=== PATIENT | male | born 1975 | race Caucasian/White ===

== ENCOUNTER 2017-02-14 18:59 | Emergency (ER) | payer OTHER ==
[2017-02-14 19:16] VITALS: TEMP 98; O2SAT 98
[2017-02-14] MEDS ORDERED: Naproxen 550 mg Tab PO STA (19:27)
[2017-02-14] MEDS ORDERED: Naproxen 550 mg Tab PO ONE (19:31)
--- NOTE | 2017-02-14 20:13 | C.PDOC ---
History Of Present Illness The patient, a 41 y/o male, presents to the ED for evaluation of back pain which began while he was at work earlier today. Patient states he reached up to pull something down and five minutes later, patient began experiencing a sharp pain to his right upper back. Patient states his pain is worse with movement and deep inspiration. Otherwise, patient denies direct trauma, chest pain, shortness of breath. Time Seen by Provider: 02/14/17 19:22 Chief Complaint (Nursing): Back Pain History Per: Patient History/Exam Limitations: no limitations Onset/Duration Of Symptoms: Hrs Current Symptoms Are (Timing): Still Present Quality Of Discomfort: Sharp, "Pain" Previous Symptoms: Back Pain Associated Symptoms: denies: Incontinence, New Weakness, New Numbness Exacerbating Factor(s): Movement, Other (+deep inspiration ) Additional History Per: Patient Past Medical History Reviewed: Historical Data, Nursing Documentation, Vital Signs Vital Signs: Last Vital Signs Temp 98.0 F 02/14/17 19:15 Pulse 78 02/14/17 20:19 Resp 18 02/14/17 20:19 BP 141/78 02/14/17 20:19 Pulse Ox 98 02/15/17 00:19 - Medical History PMH: No Chronic Diseases Surgical History: No Surg Hx Family History: States: Unknown Family Hx - Social History Hx Alcohol Use: Yes Hx Substance Use: No - Immunization History Hx Tetanus Toxoid Vaccination: No Hx Influenza Vaccination: No Hx Pneumococcal Vaccination: No Review Of Systems Except As Marked, All Systems Reviewed And Found Negative. Cardiovascular: Negative for: Chest Pain Respiratory: Negative for: Shortness of Breath Musculoskeletal: Positive for: Back Pain (right upper) Physical Exam - Physical Exam Appears: Non-toxic, No Acute Distress Skin: Normal Color, Warm, Dry Head: Atraumatic, Normacephalic Eye(s): bilateral: Normal Inspection, EOMI Oral Mucosa: Moist Neck: Normal ROM, Supple Chest: Symmetrical, No Deformity, No Tenderness Cardiovascular: Rhythm Regular, No Murmur Respiratory: Normal Breath Sounds, No Rales, No Rhonchi, No Wheezing Back: Other (+tenderness to right subscapular and infrascapular area on palpation. no crepitus or deformities) Extremity: Normal ROM, Capillary Refill (less than 2 seconds ) Neurological/Psych: Oriented x3, Normal Speech, Normal Cognition Gait: Steady ED Course And Treatment O2 Sat by Pulse Oximetry: 98 (on RA) Pulse Ox Interpretation: Normal Progress Note: CXR ordered and on review, shows no evidence of pneumothorax or any acute findings. Patient received Naproxen PO and Valium PO. On reassessment , patient is resting comfortably, showing no signs of distress, and reports an improvement in his back pain. Patient is ambulating in the ED without distress and is stable for discharge. Patient is advised to follow up with his PMD within a timely manner for further evaluation. Reassessment Condition: Improved Disposition Counseled Patient/Family Regarding: Diagnosis, Need For Followup, Rx Given - Disposition Disposition: HOME/ ROUTINE Disposition Time: 20:10 Condition: GOOD Additional Instructions: Please follow up with PMD Take meds as directed Return to ER if worse Prescriptions: Cyclobenzaprine [Cyclobenzaprine HCl] 10 mg PO HS #10 tab Naproxen 500 mg PO BID #20 tab Instructions: Muscle Strain (ED) Forms: Work Excuse - Clinical Impression Clinical Impression: Back strain - PA / CAR JOCKEY / Resident Statement MD/DO has reviewed & agrees with the documentation as recorded. - Scribe Statement The provider has reviewed the documentation as recorded by the Scribe (Kacie Allen) All medical record entries made by the Scribe were at my direction and personally dictated by me. I have reviewed the chart and agree that the record accurately reflects my personal performance of the history, physical exam, medical decision making, and the department course for this patient. I have also personally directed, reviewed, and agree with the discharge instructions and disposition.
[2017-02-14 20:20] VITALS: BP 141/78; PULSE 78; RESP 18
--- NOTE | 2017-02-14 22:20 | RAD ---
HISTORY: right upper back pain COMPARISON: No prior. TECHNIQUE: Chest PA and lateral FINDINGS: LUNGS: No active pulmonary disease. PLEURA: No significant pleural effusion identified. No pneumothorax apparent. CARDIOVASCULAR: Normal. OSSEOUS STRUCTURES: No significant abnormalities. VISUALIZED UPPER ABDOMEN: Normal. OTHER FINDINGS: None. IMPRESSION: No active disease.
== END 2017-02-14 20:20 | disposition home or self-care (01) ==
LOC: C.ER 18:59
DX: S29.012A Strain of muscle and tendon of back wall of thorax, initial encounter (principal); X50.1XXA Overexertion from prolonged static or awkward postures, initial encounter; Y93.9 Activity, unspecified; Y92.89 Other specified places as the place of occurrence of the external cause; Y99.0 Civilian activity done for income or pay